=== PATIENT | female | born 1950 | race Caucasian/White ===

== ENCOUNTER → 2017-02-25 | Outpatient (CLI) | payer OTHER ==
[~2017-02-25] MED LIST: ATORVASTATIN CA10 MG PO; BUSPAR30 MG PO; METOPROLOL TART50 MG PO; NAPROXEN500 MG PO; PRISTIQ50 MG PO
== END | disposition home or self-care (01) ==
LOC: RES 12:46
DX: J44.9 Chronic obstructive pulmonary disease, unspecified (principal)
CPT/HCPCS: 94070; 94726; 94729